=== PATIENT | female | born 1960 | race Caucasian/White ===

== ENCOUNTER → 2016-08-15 | Outpatient (CLI) | payer BC ==
--- NOTE | ~2016-08-15 | CT16 ---
[facility] A Service of [facility] & [facility] RADIOLOGY TEXT RESULTS PATIENT: PEGGY NORWOOD LOCATION: [facility] : 60 UNIT #: [id number] AGE: [address]: Tracey Ayers SEX: F ORDER DR: [id number] [facility] [address] [place], [place] [address] [id number] O MR#: [id number] Acc #: [id number] NAME: PEGGY NORWOOD : 1960 SEX: F STUDY DATE/TIME: 08/15/2016 16:14 UNIT: [facility] ROOM: STUDY DESCRIPTION: CT Angio Chest for PE Attending Physician: Tracey Ayers A.P.R.N. Referring Physician: Tracey Ayers A.P.R.N. Ordering Physician: Tracey Ayers A.P.R.N. Primary Care Physician: Kell Vail M.D. MEDICAL IMAGING REPORT This report is preliminary unless electronic signature is present EXAM CT angiography of the chest with contrast, pulmonary embolism protocol. DATE 08/15/2016 HISTORY 56-year-old female elevated D-dimer of 791. Chest tightness for 1 week. Cough for 1 week. Left lower extremity swelling and pain for 8 days. Recent vacation in [place]. COMPARISON CT chest with contrast 06/18/2015. PROCEDURE 2-mm axial images from the thoracic inlet through the upper abdomen after intravenous contrast administration. 3-D coronal MIP reformatted images were obtained. This CT exam was performed with one or more of the following radiation dose reduction techniques: Automatic exposure control, adjustment of mA and/or kV according to patient size, and iterative reconstruction. FINDINGS No pulmonary embolism. No thoracic aortic aneurysm or aortic dissection. No pericardial effusion. No pleural effusion. No pathologic adenopathy. Imaged thyroid gland is normal. Lungs are free of acute airspace disease. No abnormal bronchial wall thickening or bronchiectasis. 5 mm noncalcified nodule in the inferior medial left lower lobe (series 6, image 129, denoted by arrows). This is unchanged from CT abdomen 06/06/2012, and is in keeping with benign finding. No further followup is necessary with respect to this nodule. [facility]. [facility] A Service of [facility] RADIOLOGY TEXT RESULTS PATIENT: PEGGY NORWOOD LOCATION: [facility] : 60 UNIT #: [id number] AGE: [address]: Tracey Ayers SEX: F ORDER DR: Low-density hepatic lesions favored to represent cysts, largest measuring up to 1.8 cm. Similar findings were present on the 06/04/2012 CT abdomen. Shotty periportal and portacaval nodes thought to be stable since 2012, as well, in keeping with benign findings. No acute osseous abnormalities are identified. IMPRESSION 1. No pulmonary embolism. No thoracic aortic aneurysm or aortic dissection. No acute chest findings. 2. 5 mm noncalcified left lower lobe pulmonary nodule has been stable since 06/04/2012, and no further followup is warranted with respect to this nodule. 3. Hepatic cysts. 4. Per request of Tracey Ayers, nurse practitioner for [facility], I have placed a call to discuss the pertinent findings at the time of this dictation. I have contacted the on-call service, and I am currently awaiting the return call. Dictated by... Brittany Canada M.D. THIS IS AN ELECTRONICALLY VERIFIED REPORT Brittany Canada M.D. at 08/16/2016 8:35 AM CATHERINE/benito TD: 08/16/2016 00:02 JOB #: [id number] MEDICAL IMAGING REPORT Page 1 of 1 COPY
== END | disposition home or self-care (01) ==
LOC: CLAB 11:29
DX: R06.00 Dyspnea, unspecified (principal); R06.02 Shortness of breath; M79.605 Pain in left leg; R91.1 Solitary pulmonary nodule; K76.89 Other specified diseases of liver
CPT/HCPCS: 36415; 71275; 85379; Q9967

== ENCOUNTER → 2016-09-01 | Outpatient (CLI) | payer BC ==
--- NOTE | ~2016-09-01 | US139 ---
[facility] A Service of [facility] RADIOLOGY TEXT RESULTS PATIENT: PEGGY NORWOOD LOCATION: [facility] : 60 UNIT #: [id number] AGE: [address]: Jatin Marie MD SEX: F ORDER DR: [id number] [address] [address] [id number] O MR#: [id number] Acc #: [id number] NAME: PEGGY NORWOOD : 1960 SEX: F STUDY DATE/TIME: 09/01/2016 15:44 UNIT: [facility] ROOM: STUDY DESCRIPTION: US UE Veins Complete Jean Pierre Stdy Attending Physician: Jatin Marie M.D. Referring Physician: Jatin Marie M.D. Ordering Physician: Jatin Marie M.D. Primary Care Physician: Kell Vail M.D. MEDICAL IMAGING REPORT This report is preliminary unless electronic signature is present. EXAM Bilateral lower extremity venous duplex 09/01/2016 HISTORY Bilateral lower extremity pain for 3 weeks with elevated D-dimer. Evaluate for deep vein thrombosis. TECHNIQUE Venous ultrasound examination of both lower extremities was performed using grayscale, spectral Doppler and color flow Doppler imaging. FINDINGS The examination is negative. There is no evidence of deep venous thrombus from the groin to the lower calf bilaterally. Visualized greater saphenous veins are also patent. IMPRESSION Negative examination. No evidence of lower extremity deep venous thrombosis. Dictated by... Lance Raya M.D. THIS IS AN ELECTRONICALLY VERIFIED REPORT Lance Raya M.D. at 09/04/2016 2:17 PM KRT/pcl TD: 09/01/2016 18:42 [facility] A Service [facility] RADIOLOGY TEXT RESULTS PATIENT: PEGGY NORWOOD LOCATION: [facility] : 60 UNIT #: [id number] AGE: [address]: Jatin Marie MD SEX: F ORDER DR: HALIE #: [id number] MEDICAL IMAGING REPORT Page 1 of 1
== END | disposition home or self-care (01) ==
LOC: SNIV 14:13
DX: M79.605 Pain in left leg (principal); J45.20 Mild intermittent asthma, uncomplicated
CPT/HCPCS: 93970